=== PATIENT | male | born 1940 | race Caucasian/White ===

== ENCOUNTER 2021-08-08 14:18 | Emergency (ER) | payer OTHER ==
[2021-08-08] MEDS ORDERED: HYDROCODON-ACE1 EAC4 PO (18:31)
== END 2021-08-08 19:00 | disposition home or self-care (01) ==
LOC: ER1 14:18
DX: S09.90XA Unspecified injury of head, initial encounter (principal); R07.81 Pleurodynia; Z88.2 Allergy status to sulfonamides; Z85.46 Personal history of malignant neoplasm of prostate; Z23 Encounter for immunization; W19.XXXA Unspecified fall, initial encounter
CPT/HCPCS: 70450; 71101; 72131; 73030; 90471; 90715; 99284